=== PATIENT | female | born 1950 | race Caucasian/White ===

== ENCOUNTER 2016-07-11 13:23 | Emergency (ER) | payer OTHER ==
[2016-07-11 14:20] VITALS: BP 138/69
--- NOTE | 2016-07-11 14:43 | UC ---
Respiratory Complaint HPI - HPI Summary HPI Summary: 65 year old female with complaints productive cough of yellow to clear mucus x 4 days and feels she is getting worse. Hx of asthma. She scheduled for total knee replacement in 10 days. States she usually needs antibiotics to get better from similar illnesses Denies fever or chills - History of Current Complaint Chief Complaint: UCRespiratory Stated Complaint: COUGH Time Seen by Provider: 07/11/16 14:21 Hx Obtained From: Patient ?: No Onset/Duration: Sudden Onset, Lasting Days - 4, Still Present Timing: Constant Severity Initially: Mild Severity Currently: Moderate Character: Cough: Productive - yellow/green/clear Aggravating Factors: Exertion, Deep Breaths, Recumbent Position Alleviating Factors: Nothing Associated Signs And Symptoms: Positive: Chills, Wheezing, URI, Nasal Congestion. Negative: Dyspnea, Fever, Pleuritic Chest Pain, Hemoptysis, Dizziness, Calf Pain, Calf Swelling, Edema, Hoarseness, Sinus Discomfort - Risk Factors Pulmonary Embolism Risk Factors: Negative Cardiac Risk Factors: Negative Pseudomonas Risk Factors: Chronic Lung Disease Tuberculosis Risk Factors: Negative - Allergies/Home Medications Allergies/Adverse Reactions: Allergies Allergy/AdvReac Type Severity Reaction Status Date / Time Meperidine [From Demerol HCl] Allergy LOWERS Verified 07/11/16 14:12 BLOOD PRESSURE Oxycodone [From Percocet] Allergy Vomiting Verified 07/11/16 14:12 Propoxyphene Allergy DISORIENTAT Verified 07/11/16 14:12 [From Darvocet-N] ION ENVIRONMENTAL/SEASONAL Allergy ITCHY,WATERY Uncoded 07/11/16 14:12 HAYFEVER EYES, CONGESTION ANESTHESIA AdvReac Severe Vomiting Uncoded 07/11/16 14:12 Home Medications: Home Medications guaiFENesin ER TAB [Mucinex*] 600 mg PO BID 07/11/16 [History Confirmed 07/11/16 ] PMH/Surg Hx/FS Hx/Imm Hx Previously Healthy: Yes Endocrine History Of: Reports: Thyroid Disease - HYPOTHYROIDISM Denies: Diabetes Cardiovascular History Of: Reports: Cardiac Disorders - heart murmur, Hypertension - CONTROL WITH MEDS Respiratory History Of: Reports: Asthma - INHALER PRN GI/ History Of: Reports: Ulcer - AGE 30 Psychological History Of: Reports: Anxiety - MEDS, Depression - MEDS Cancer History Of: Denies: Breast Cancer - Surgical History Surgical History: Yes Surgery Procedure, Year, and Place: 1996 BACK FUSION L4, L5, S1, [place], [place]. 1994 HYSTERECTOMY WITH BILATERAL S&O, AND APPENDECTOMY, [place], [place]. 1998 LEFT WRIST ORIF, [place], [place]. 1991 RIGHT WRIST CARPAL TUNNEL RELEASE, [place]. 2013 RIGHT KNEE SX, RIGHT KNEE REPLACEMENT 2016 - Family History Known Family History: Positive: None, Cardiac Disease, Hypertension, Diabetes - Social History Alcohol Use: None Substance Use Type: None Smoking Status (MU): Never Smoked Tobacco - Immunization History Most Recent Influenza Vaccination: not this season Review of Systems Constitutional: Chills, Fatigue Skin: Negative Eyes: Negative ENT: Sore Throat, Nasal Discharge Respiratory: Cough Cardiovascular: Negative Gastrointestinal: Negative Genitourinary: Negative Motor: Negative Neurovascular: Negative Musculoskeletal: Negative Neurological: Negative Psychological: Negative All Other Systems Reviewed And Are Negative: Yes Physical Exam Triage Information Reviewed: Yes Appearance: No Pain Distress, Well-Nourished, Ill-Appearing Vital Signs: Initial Vital Signs Temp 98.8 F 07/11/16 14:15 Pulse 64 07/11/16 14:15 Resp 20 07/11/16 14:15 BP 138/69 07/11/16 14:15 Pulse Ox 96 07/11/16 14:15 Vital Signs Reviewed: Yes Eyes: Positive: Conjunctiva Clear. Negative: Discharge ENT: Positive: Pharynx normal, Nasal drainage, TMs normal. Negative: Tonsillar swelling, Tonsillar exudate Neck: Positive: Supple, Nontender, No Lymphadenopathy Respiratory: Positive: Lungs clear, Decreased breath sounds, Other: - tight harsh cough Cardiovascular: Positive: RRR, No Murmur Musculoskeletal: Positive: Strength Intact, ROM Intact Neurological: Positive: Alert, Muscle Tone Normal Psychological: Positive: Age Appropriate Behavior - pleasant and cooperative Skin: Negative: rashes, breakdown UC Diagnostic Evaluation - Laboratory O2 Sat by Pulse Oximetry: 96 Respiratory Course/Dx - Differential Dx/Diagnosis Differential Diagnosis/HQI/PQRI: Asthma, Bronchitis Provider Diagnoses: Acute Bronchitis Discharge - Discharge Plan Condition: Stable Disposition: HOME Prescriptions: Azithromycin TAB* [Zithromax TAB (Z-ZAKI) 250 mg #6 tabs] 2 tab PO .TODAY, THEN 1 DAILY #6 tab Patient Education Materials: Acute Bronchitis (ED) Additional Instructions: Continue using your nebulizer treatments Continue taking the mucinex as the bottle directs Notify your orthopedic surgeon of your illness
== END 2016-07-11 14:58 | disposition home or self-care (01) ==
LOC: UCCORT 13:23
DX: J20.9 Acute bronchitis, unspecified (principal); I10 Essential (primary) hypertension; F41.9 Anxiety disorder, unspecified; F32.9 Major depressive disorder, single episode, unspecified; Z96.651 Presence of right artificial knee joint; Z88.5 Allergy status to narcotic agent; Z88.8 Allergy status to other drugs, medicaments and biological substances
CPT/HCPCS: 99212; G0463